=== PATIENT | male | born 1980 | race Caucasian/White ===

== ENCOUNTER 2019-06-26 13:48 | Emergency (ER) | payer MEDICAID ==
[~2019-06-26] VITALS: Ht 185.4 cm; Wt 86.0 kg
[~2019-06-26 13:48] MED LIST: ALPR0.5T PO
[2019-06-26 15:45] VITALS: BP 129/73
== END 2019-06-26 15:45 | disposition home or self-care (01) ==
LOC: ER 13:48
DX: F10.129 Alcohol abuse with intoxication, unspecified (principal); F12.10 Cannabis abuse, uncomplicated; F11.10 Opioid abuse, uncomplicated; F15.10 Other stimulant abuse, uncomplicated; Y90.9 Presence of alcohol in blood, level not specified
CPT/HCPCS: 99283

== ENCOUNTER 2019-06-27 06:48 | Emergency (ER) | payer MEDICAID ==
[~2019-06-27] VITALS: Ht 180.3 cm; Wt 66.0 kg
[2019-06-27] MEDS ORDERED: KETOROLAC 30MG/ML VIAL IM ONE (07:15)
[2019-06-27 08:29] VITALS: BP 110/89
== END 2019-06-27 08:20 | disposition home or self-care (01) ==
LOC: ER 06:48
DX: S01.81XA Laceration without foreign body of other part of head, initial encounter (principal); F10.10 Alcohol abuse, uncomplicated; Y90.9 Presence of alcohol in blood, level not specified; Y04.0XXA Assault by unarmed brawl or fight, initial encounter; Y93.89 Activity, other specified; Y92.89 Other specified places as the place of occurrence of the external cause
CPT/HCPCS: 70486; 96372; 99284; J1885

== ENCOUNTER 2019-06-30 23:10 | Emergency (ER) | payer MEDICAID ==
[~2019-06-30] VITALS: Ht 182.9 cm; Wt 82.0 kg
[2019-06-30 23:50] VITALS: BP 124/86
== END 2019-07-01 00:56 | disposition left against medical advice (07) ==
LOC: ER 23:10
DX: Z53.21 Procedure and treatment not carried out due to patient leaving prior to being seen by health care provider (principal)

== ENCOUNTER 2023-01-08 09:57 | Emergency (ER) | payer OTHER ==
[~2023-01-08] VITALS: Ht 188 cm; Wt 91.0 kg
[2023-01-08 09:59] VITALS: O2SAT 100
[2023-01-08] MEDS ORDERED: SODIUM CHLORIDE 0.9% 1,000 ML IV ONE (10:45)
[2023-01-08 11:12] LABS: BASOPHILS % 0.3 % (0.0-2.0); EOSINOPHILS % 0.6 % (0.0-5.0); HEMATOCRIT. 40.9 % (42.0-52.0); HEMOGLOBIN. 14.1 g/dL (14.0-18.0); LYMPHOCYTES % 21.8 % (20.0-50.0); MEAN CORPUSCULAR HEMOGLOBIN 32.1 pg (28.0-32.0); MEAN CORPUSCULAR VOLUME 93.5 fL (80.0-94.0); MEAN PLATELET VOLUME 8.2 fl (7.4-10.4); MONOCYTES % 8.3 % (2.0-8.0); PLATELET 217 x1000/uL (130-400); RED BLOOD CELL COUNT 4.37 mill/uL (4.7-6.1); RED CELL DISTRIBUTION WIDTH 13.9 % (11.6-14.6)
[2023-01-08 11:15] LABS: CHLORIDE 111 mEq/L (98-107)
[2023-01-08 11:22] VITALS: BP 132/85; PULSE 108; RESP 16; TEMP 98.7
[2023-01-08 11:25] LABS: ETHANOL BLOOD 336 mg/dL (-10)
== END 2023-01-08 11:55 ==
LOC: ER 09:57
DX: F10.129 Alcohol abuse with intoxication, unspecified (principal); Y90.8 Blood alcohol level of 240 mg/100 ml or more
CPT/HCPCS: 36415; 80048; 80320; 85025; 99283; J7030; G0480

== ENCOUNTER 2023-01-08 12:13 | Emergency (ER) | payer OTHER ==
[~2023-01-08] VITALS: Ht 182.9 cm; Wt 82.0 kg
[2023-01-08 12:17] VITALS: BP 106/68; PULSE 120; RESP 16; TEMP 98.7; O2SAT 97
== END 2023-01-08 12:36 | disposition left against medical advice (07) ==
LOC: ER 12:13
DX: Z53.21 Procedure and treatment not carried out due to patient leaving prior to being seen by health care provider (principal); R07.89 Other chest pain
CPT/HCPCS: 93005; 99283

== ENCOUNTER 2023-01-08 15:25 | Emergency (ER) | payer OTHER ==
[~2023-01-08] VITALS: Ht 175.3 cm; Wt 78.0 kg
[2023-01-08 15:34] VITALS: BP 108/69; PULSE 115; RESP 18; TEMP 98.6; O2SAT 98
== END 2023-01-08 18:54 | disposition home or self-care (01) ==
LOC: ER 15:25
DX: R07.89 Other chest pain (principal)
CPT/HCPCS: 99283

== ENCOUNTER 2023-01-08 20:45 | Emergency (ER) | payer MEDICAID, OTHER ==
[~2023-01-08] VITALS: Ht 180.3 cm; Wt 91.0 kg
[2023-01-08 20:56] VITALS: BP 130/80; PULSE 106; RESP 18; TEMP 97.9; O2SAT 97
[2023-01-08 21:33] LABS: BASOPHILS % 0.2 % (0.0-2.0); EOSINOPHILS % 0.7 % (0.0-5.0); HEMATOCRIT. 42.6 % (42.0-52.0); HEMOGLOBIN. 14.3 g/dL (14.0-18.0); LYMPHOCYTES % 15.7 % (20.0-50.0); MEAN CORPUSCULAR VOLUME 95.5 fL (80.0-94.0); MEAN PLATELET VOLUME 8.1 fl (7.4-10.4); MONOCYTES % 9.4 % (2.0-8.0); PLATELET 218 x1000/uL (130-400); RED BLOOD CELL COUNT 4.46 mill/uL (4.7-6.1); RED CELL DISTRIBUTION WIDTH 14.5 % (11.6-14.6)
[2023-01-08 21:36] LABS: CHLORIDE 110 mEq/L (98-107)
== END 2023-01-09 01:37 | disposition left against medical advice (07) ==
LOC: ER 20:45
DX: Z53.21 Procedure and treatment not carried out due to patient leaving prior to being seen by health care provider (principal)
CPT/HCPCS: 36415; 80053; 85025; 99281

== ENCOUNTER 2023-01-09 03:26 | Emergency (ER) | payer MEDICAID, OTHER ==
[~2023-01-09] VITALS: Ht 193 cm; Wt 55.0 kg
[2023-01-09 03:32] VITALS: BP 138/92; PULSE 115; RESP 20; TEMP 98.2; O2SAT 100
[2023-01-09 03:57] LABS: BASOPHILS % 0.3 % (0.0-2.0); EOSINOPHILS % 0.8 % (0.0-5.0); HEMATOCRIT. 41.6 % (42.0-52.0); HEMOGLOBIN. 14.2 g/dL (14.0-18.0); LYMPHOCYTES % 22.1 % (20.0-50.0); MEAN CORPUSCULAR HEMOGLOBIN 32.3 pg (28.0-32.0); MEAN CORPUSCULAR VOLUME 94.5 fL (80.0-94.0); MEAN PLATELET VOLUME 8.1 fl (7.4-10.4); MONOCYTES % 9.1 % (2.0-8.0); NEUTROPHILS % 67.7 % (40.0-76.0); PLATELET 240 x1000/uL (130-400); RED CELL DISTRIBUTION WIDTH 14.4 % (11.6-14.6)
[2023-01-09 04:09] LABS: CHLORIDE 109 mEq/L (98-107)
[2023-01-09 04:41] LABS: ETHANOL BLOOD 157 mg/dL (-10)
[2023-01-09 09:11] LABS: CLARITY URINE CLEAR (CLEAR); COLOR URINE YELLOW (YELLOW); KETONES URINE NEGATIVE (NEGATIVE); LEUKOCYTE ESTERASE URINE NEGATIVE (NEGATIVE); NITRITE URINE NEGATIVE (NEGATIVE); OCCULT BLOOD URINE NEGATIVE (NEGATIVE); PH URINE 5.5 (4.5-8.0); PROTEIN URINE NEGATIVE (NEGATIVE); SPECIFIC GRAVITY URINE 1.014 (1.005-1.030); UROBILINOGEN URINE 0.2 E.U./dL (0.2-1.0)
[2023-01-09 09:31] LABS: *AMPHETAMINES SCREEN URINE PRESUMTIVE POSITIVE (NEGATIVE); *BARBITURATES SCREEN URINE NEGATIVE (NEGATIVE); *BENZODIAZEPINES SCREEN URINE NEGATIVE (NEGATIVE); *COCAINE SCREEN URINE NEGATIVE (NEGATIVE); CANNABINOID URINE SCREEN NEGATIVE (NEGATIVE); METHADONE URINE SCREEN NEGATIVE (NEGATIVE); OPIATES URINE SCREEN NEGATIVE (NEGATIVE); PHENCYCLIDINE URINE SCREEN PRESUMTIVE POSITIVE (NEGATIVE)
== END 2023-01-09 10:06 | disposition left against medical advice (07) ==
LOC: ER 03:26
DX: R45.851 Suicidal ideations (principal); E11.9 Type 2 diabetes mellitus without complications
CPT/HCPCS: 36415; 71045; 80053; 80305; 80307; 80320; 80329; 81003; 84484; 85025; 93005; 99285; G0480

== ENCOUNTER 2023-03-25 14:20 | Emergency (ER) | payer MEDICAID, OTHER ==
[~2023-03-25] VITALS: Ht 170.2 cm; Wt 75.0 kg
[2023-03-25 15:16] VITALS: BP 116/85; PULSE 114; RESP 16; TEMP 98.6
== END 2023-03-25 16:16 | disposition home or self-care (01) ==
LOC: ER 14:20
DX: F10.229 Alcohol dependence with intoxication, unspecified (principal); E11.9 Type 2 diabetes mellitus without complications; Y90.0 Blood alcohol level of less than 20 mg/100 ml
CPT/HCPCS: 99283

== ENCOUNTER 2024-11-18 21:04 | Emergency (ER) | payer MEDICAID, OTHER ==
[~2024-11-18] VITALS: Ht 193 cm; Wt 82.0 kg
[2024-11-18 21:07] VITALS: O2SAT 98
[2024-11-18 21:20] VITALS: BP 128/94; PULSE 122; RESP 16; TEMP 36.7; O2SAT 99
[2024-11-18 21:28] LABS: BASOPHILS % 0.6 % (0.0-2.0); EOSINOPHILS % 0.7 % (0.0-5.0); HEMATOCRIT. 42.5 % (42.0-52.0); HEMOGLOBIN. 14.5 g/dL (14.0-18.0); LYMPHOCYTES % 22.7 % (20.0-50.0); MEAN CORPUSCULAR HGB CONC 34.1 g/dL (31.0-37.0); MEAN CORPUSCULAR VOLUME 96.8 fL (80.0-94.0); MEAN PLATELET VOLUME 7.4 fl (7.4-10.4); MONOCYTES % 5.9 % (2.0-8.0); NEUTROPHILS % 70.1 % (40.0-76.0); PLATELET 302 x1000/uL (130-400); RED BLOOD CELL COUNT 4.39 mill/uL (4.7-6.1); RED CELL DISTRIBUTION WIDTH 13.9 % (11.6-14.6); WHITE BLOOD COUNT 7.4 x1000/uL (4.5-11.0)
[2024-11-18 21:34] LABS: CHLORIDE 101 mEq/L (98-107); SODIUM 139 mEq/L (136-145)
[2024-11-18 21:35] LABS: CALCIUM 8.3 mg/dL (8.7-10.4); CARBON DIOXIDE 29 mEq/L (21-32)
[2024-11-18 21:40] LABS: CREATININE 0.8 mg/dL (0.6-1.3); GLUCOSE 142 mg/dL (70-105); UREA NITROGEN BLOOD 6 mg/dL (9-23)
[2024-11-18 21:41] LABS: TROPONIN I HIGH SENSITIVITY < 4 ng/L (3.0-53)
== END 2024-11-18 22:00 | disposition left against medical advice (07) ==
LOC: ER 21:04
DX: R07.89 Other chest pain (principal); Z53.21 Procedure and treatment not carried out due to patient leaving prior to being seen by health care provider
CPT/HCPCS: 36415; 71045; 80048; 84484; 85025; 93005

== ENCOUNTER 2025-04-06 18:27 | Emergency (ER) | payer MEDICAID ==
[~2025-04-06] VITALS: Ht 188 cm; Wt 80.0 kg
[2025-04-06 18:39] VITALS: BP 141/76; PULSE 111; RESP 20; TEMP 36.9; O2SAT 100
== END 2025-04-06 22:24 | disposition home or self-care (01) ==
LOC: ER 18:27
DX: S09.8XXA Other specified injuries of head, initial encounter (principal); F19.10 Other psychoactive substance abuse, uncomplicated; Z79.899 Other long term (current) drug therapy; Y90.9 Presence of alcohol in blood, level not specified; X58.XXXA Exposure to other specified factors, initial encounter; Y93.89 Activity, other specified; Y92.89 Other specified places as the place of occurrence of the external cause; Y99.8 Other external cause status
CPT/HCPCS: 99284

== ENCOUNTER 2025-04-06 21:35 | Emergency (ER) | payer MEDICAID ==
[~2025-04-06] VITALS: Ht 188 cm; Wt 77.0 kg
[2025-04-06 21:38] VITALS: BP 120/89; PULSE 104; RESP 18; TEMP 36.7; O2SAT 99
== END 2025-04-06 23:22 | disposition left against medical advice (07) ==
LOC: ER 21:35
DX: R07.89 Other chest pain (principal); Z53.21 Procedure and treatment not carried out due to patient leaving prior to being seen by health care provider
CPT/HCPCS: 71045; 93005